=== PATIENT | female | born 1960 | race Caucasian/White ===

== ENCOUNTER → 2016-12-12 | Outpatient (CLI) | payer MEDICARE ==
[~2016-12-12] MED LIST: AMITRIPTYLINE50 MG PO; ASPIRIN 81MG TA81 MG PO; BLOOD PRESSURE; CALCIUM 500 + D1 TA1 PO; CALCIUM CARBO1250 MG PO; CIPRO 500MG TA500 MG PO; DICLOXACILLIN500 M1 PO; DUONEB 3 MG/3 ML3 ML IH; ESTRADIOL1 M1 PO; FLUOXETINE40 MG PO; HYDROCODONE1 TABLET PO; LASIX20 MG PO; LEVOTHYROXINE0.05 M2 PO; LISINOPRIL AND1 TA1 PO; LORTAB 5/500 501 TAB PO; MASON NATURAL1200 MG PO; MEDROL 4MG. DOSE4 MG PO; NAPROXEN SODIU275 MG PO; PRAVASTATIN SOD80 MG PO; PREDNISONE 20MG20 MG PO; RANITIDINE150 M1 PO; VOLTAREN75 MG PO; ZITHROMAX Z-PA250 M1 PO
--- NOTE | 2016-12-15 13:53 | RADIOLOGY REPORT PS360 ---
DIG MAMM-SCREEN [facility] W/CAD CAD Screening COMPARISON: Digital mammograms 05/25/2015 and 05/10/2014 INDICATION: There is no personal or family history of breast cancer TECHNIQUE: Standard CC and MLO images were obtained. R2 CAD reviewed. FINDINGS: Scattered fibroglandular densities are seen throughout both breasts on a background of primarily fatty breast parenchyma. The findings are bilateral and symmetrical. There is no new or suspicious lesion in either breast and there are no suspicious microcalcifications. IMPRESSION: Stable exam with no suspicious lesion seen recommend yearly follow-up BI-RADS CATEGORY: 1_Negative RECOMMENDED FOLLOWUP: 12M 12 MONTH FOLLOW-UP (A letter has been sent to the patient regarding results of the study.)
== END ==
LOC: RAD 11-21 10:30
DX: Z12.31 Encounter for screening mammogram for malignant neoplasm of breast (principal)
CPT/HCPCS: G0202